=== PATIENT | female | born 1945 | race African-American/Black ===

== ENCOUNTER 2016-12-06 14:21 | Inpatient (IN) | payer OTHER, BC ==
[~2016-12-06] VITALS: Ht 165.1 cm; Wt 54.0 kg
[~2016-12-06 14:21] MED LIST: AMITRIPTYLINE50 M1 PO; BAY PO; CARVEDILOL; CARVEDILOL25 M1 PO; CLEOCIN HCL300 MG PO; COUMADIN4 MG PO; ELA10 PO; ENALAPRIL MALE2.5 MG PO; L20 PO; LAC PO; LANTUS SOLOS100 U/M1 SC; LEVAQUIN750 MG PO; LEVOFLOXACIN500 M1 PO; MEGL; PROAIR HFA0.09 MG/A1 IH; RENVELA800 M1 PO; ZANTAC 150150 MG PO; ZOC20 PO
[2016-12-06 16:02] LABS: BASOPHIL % 0.1 % (0-2)
[2016-12-06 16:06] LABS: PLATELET COUNT 285 x10^3mcL (130-400)
[2016-12-06 16:10] LABS: RED CELL DISTRIBUTION WIDTH 15.4 % (11.5-14.5)
[2016-12-06 16:26] LABS: BILIRUBIN TOTAL 0.59 mg/dL (0.20-1.00); CALCIUM 9.7 mg/dL (8.5-10.1); CARBON DIOXIDE 28.9 mmol/L (21-32); POTASSIUM SERUM 4.2 mmol/L (3.5-5.1); TOTAL PROTEIN, SERUM 7.2 g/dL (6.4-8.2)
[2016-12-06 16:29] LABS: ALBUMIN 2.8 g/dL (3.4-5.0); CREATININE SERUM 9.6 mg/dL (0.6-1.0)
[2016-12-06 17:17] LABS: FREE T4 1.7 ng/dL (0.76-1.46); T4(THYROXINE) 7.4 ug/dL (4.7-13.3)
[2016-12-06 17:30] LABS: CHOLESTEROL/HDL RATIO 3.6
[2016-12-06 17:35] VITALS: BP 100/92
[2016-12-06 19:32] LABS: MAGNESIUM 2.6 mg/dL (1.8-2.4); PHOSPHOROUS 7.7 mg/dL (2.5-4.9)
[2016-12-06 19:52] VITALS: BP 117/36
[2016-12-06 20:08] LABS: T3 TOTAL 0.61 ng/mL
[2016-12-06 23:16] VITALS: BP 133/67
[2016-12-07 03:20] VITALS: BP 117/94
[2016-12-07 05:21] LABS: BASOPHIL % 0.1 % (0-2); PLATELET COUNT 269 x10^3mcL (130-400)
[2016-12-07 05:24] LABS: RED CELL DISTRIBUTION WIDTH 15.2 % (11.5-14.5)
[2016-12-07 05:44] LABS: CALCIUM 9.8 mg/dL (8.5-10.1); CARBON DIOXIDE 29.3 mmol/L (21-32); MAGNESIUM 2.5 mg/dL (1.8-2.4); PHOSPHOROUS 7.6 mg/dL (2.5-4.9); POTASSIUM SERUM 4.1 mmol/L (3.5-5.1)
[2016-12-07 05:46] LABS: CREATININE SERUM 9.6 mg/dL (0.6-1.0)
[2016-12-07 07:39] VITALS: Ht 165.1 cm; Wt 54.0 kg
[2016-12-07 08:36] VITALS: BP 116/67
[2016-12-07 11:29] VITALS: BP 85/52
[2016-12-07 15:21] VITALS: BP 108/58
[2016-12-07 20:00] VITALS: BP 81/50
[2016-12-08 00:01] VITALS: BP 93/49
[2016-12-08 04:06] VITALS: BP 87/43
[2016-12-08 05:43] LABS: CALCIUM 9.2 mg/dL (8.5-10.1); CARBON DIOXIDE 26.7 mmol/L (21-32); MAGNESIUM 2.4 mg/dL (1.8-2.4); PHOSPHOROUS 7.5 mg/dL (2.5-4.9); POTASSIUM SERUM 3.6 mmol/L (3.5-5.1)
[2016-12-08 05:45] LABS: CREATININE SERUM 9.9 mg/dL (0.6-1.0)
[2016-12-08 05:52] LABS: PLATELET COUNT 252 x10^3mcL (130-400)
[2016-12-08 05:56] LABS: BASOPHIL % 0 % (0-2); RED CELL DISTRIBUTION WIDTH 15.7 % (11.5-14.5)
[2016-12-08 07:38] VITALS: BP 89/40
[2016-12-08 11:24] VITALS: BP 73/44
[2016-12-08 18:35] VITALS: BP 97/52
[2016-12-08 21:20] VITALS: BP 104/50
[2016-12-09 05:37] VITALS: BP 98/47
[2016-12-09 07:12] LABS: BASOPHIL % 0.1 % (0-2); PLATELET COUNT 268 x10^3mcL (130-400); RED CELL DISTRIBUTION WIDTH 17.1 % (11.5-14.5)
[2016-12-09 07:13] LABS: CALCIUM 9.4 mg/dL (8.5-10.1); CARBON DIOXIDE 26.3 mmol/L (21-32); MAGNESIUM 2.4 mg/dL (1.8-2.4); PHOSPHOROUS 7.3 mg/dL (2.5-4.9); POTASSIUM SERUM 3.3 mmol/L (3.5-5.1)
[2016-12-09 07:19] LABS: CREATININE SERUM 9.7 mg/dL (0.6-1.0)
[2016-12-09 09:30] VITALS: BP 98/49
[2016-12-09] MEDS ORDERED: ALD25 PO (11:08)
[2016-12-09] MEDS ORDERED: ELIQUIS2.5 MG PO (11:10)
[2016-12-09 12:50] VITALS: BP 97/53
[2016-12-09] MEDS ORDERED: PROAIR HFA8.5 GM IH (13:46)
[2016-12-09] MEDS ORDERED: ZANTAC 150150 MG PO (13:47)
[2016-12-09] MEDS ORDERED: AMITRIPTYLINE H50 MG PO (13:47)
[2016-12-09] MEDS ORDERED: RENVELA800 M1 PO (13:48)
[2016-12-09] MEDS ORDERED: CORE25 PO (13:49)
[2016-12-09 14:43] VITALS: BP 97/53
== END 2016-12-09 15:13 | disposition home or self-care (01) | DRG 291 ==
LOC: ED 14:21 → IC 15:57 → DU 12-08 14:07
PROVIDERS: Emergency Medicine; ADMIT Family Medicine
DX: I50.43 Acute on chronic combined systolic (congestive) and diastolic (congestive) heart failure (principal); N18.6 End stage renal disease; N17.0 Acute kidney failure with tubular necrosis; E43 Unspecified severe protein-calorie malnutrition; J96.01 Acute respiratory failure with hypoxia; I42.9 Cardiomyopathy, unspecified; E11.65 Type 2 diabetes mellitus with hyperglycemia; E11.51 Type 2 diabetes mellitus with diabetic peripheral angiopathy without gangrene; E83.39 Other disorders of phosphorus metabolism; E05.80 Other thyrotoxicosis without thyrotoxic crisis or storm; D63.8 Anemia in other chronic diseases classified elsewhere; D72.829 Elevated white blood cell count, unspecified; Z99.2 Dependence on renal dialysis; Z79.4 Long term (current) use of insulin; Z79.82 Long term (current) use of aspirin; Z68.21 Body mass index [BMI] 21.0-21.9, adult; Z95.810 Presence of automatic (implantable) cardiac defibrillator; Z86.73 Personal history of transient ischemic attack (TIA), and cerebral infarction without residual deficits
CPT/HCPCS: 36600; 80307; 83880; 84439; 94150; J1644; J1815; J3490; J7030; J7050; P9016; Q0092; Q0163

== ENCOUNTER 2017-01-02 15:54 | Inpatient (IN) | payer OTHER, BC ==
[~2017-01-02] VITALS: Ht 165.1 cm; Wt 59.2 kg
[~2017-01-02 15:54] MED LIST changes: +ALD25 PO; +AMITRIPTYLINE H50 MG PO; +CORE25 PO; +ELIQUIS2.5 MG PO; +PROAIR HFA8.5 GM IH
[2017-01-02 17:02] LABS: BASOPHIL % 0.5 % (0-2); PLATELET COUNT 337 x10^3mcL (130-400)
[2017-01-02 17:03] LABS: RED CELL DISTRIBUTION WIDTH 17.7 % (11.5-14.5)
[2017-01-02 17:12] LABS: BILIRUBIN TOTAL 0.38 mg/dL (0.20-1.00); CALCIUM 8.6 mg/dL (8.5-10.1); CARBON DIOXIDE 26.8 mmol/L (21-32); POTASSIUM SERUM 3.9 mmol/L (3.5-5.1); TOTAL PROTEIN, SERUM 6.9 g/dL (6.4-8.2)
[2017-01-02 17:17] LABS: ALBUMIN 2.6 g/dL (3.4-5.0)
[2017-01-02 17:18] LABS: CREATININE SERUM 11.4 mg/dL (0.6-1.0)
[2017-01-02 17:52] LABS: CK-MB 2.8 ng/mL (0-3.6)
[2017-01-02 19:37] LABS: CHOLESTEROL/HDL RATIO 3.3
[2017-01-02 19:48] LABS: FREE T4 0.82 ng/dL (0.76-1.46); FREE THYROXINE INDEX 1.7 ug/dL (1.4-4.5); T4(THYROXINE) 4.8 ug/dL (4.7-13.3)
[2017-01-02 20:08] LABS: MAGNESIUM 2.6 mg/dL (1.8-2.4); PHOSPHOROUS 7.4 mg/dL (2.5-4.9)
[2017-01-02 20:10] LABS: T3 TOTAL 0.5 ng/mL
[2017-01-02 21:36] VITALS: BP 126/64
[2017-01-02 23:00] VITALS: BP 117/73
[2017-01-03] VITALS (8 sets, daily range): BP systolic 80–111; BP diastolic 48–89
[2017-01-03 06:29] LABS: CALCIUM 8.7 mg/dL (8.5-10.1); CARBON DIOXIDE 25.8 mmol/L (21-32); MAGNESIUM 2.4 mg/dL (1.8-2.4); POTASSIUM SERUM 4.5 mmol/L (3.5-5.1)
[2017-01-03 06:33] LABS: CREATININE SERUM 12.1 mg/dL (0.6-1.0)
[2017-01-03 07:01] LABS: BASOPHIL % 0.1 % (0-2); PLATELET COUNT 376 x10^3mcL (130-400)
[2017-01-03 07:02] LABS: RED CELL DISTRIBUTION WIDTH 17.5 % (11.5-14.5)
[2017-01-04] VITALS (7 sets, daily range): BP systolic 85–95; BP diastolic 40–54
[2017-01-04 06:38] LABS: BASOPHIL % 0.4 % (0-2)
[2017-01-04 06:40] LABS: CALCIUM 8.8 mg/dL (8.5-10.1); CARBON DIOXIDE 26.2 mmol/L (21-32); PHOSPHOROUS 8.4 mg/dL (2.5-4.9); POTASSIUM SERUM 4.2 mmol/L (3.5-5.1)
[2017-01-04 06:43] LABS: PLATELET COUNT 284 x10^3mcL (130-400)
[2017-01-04 06:50] LABS: CREATININE SERUM 11.7 mg/dL (0.6-1.0)
[2017-01-04 06:56] LABS: RED CELL DISTRIBUTION WIDTH 17.7 % (11.5-14.5)
[2017-01-05 05:36] VITALS: BP 88/47
[2017-01-05 06:05] LABS: CALCIUM 8.1 mg/dL (8.5-10.1); CARBON DIOXIDE 24.6 mmol/L (21-32); MAGNESIUM 2.4 mg/dL (1.8-2.4); PHOSPHOROUS 6.6 mg/dL (2.5-4.9); POTASSIUM SERUM 4.2 mmol/L (3.5-5.1)
[2017-01-05 06:07] LABS: CREATININE SERUM 11.4 mg/dL (0.6-1.0)
[2017-01-05 09:15] VITALS: BP 112/63
[2017-01-05 16:21] VITALS: BP 94/50
[2017-01-05 21:12] VITALS: BP 101/61
[2017-01-06 06:22] VITALS: BP 110/61
[2017-01-06 07:06] LABS: BASOPHIL % 0.5 % (0-2); PLATELET COUNT 263 x10^3mcL (130-400)
[2017-01-06 07:26] LABS: CALCIUM 8.2 mg/dL (8.5-10.1); CARBON DIOXIDE 23.7 mmol/L (21-32); MAGNESIUM 2.5 mg/dL (1.8-2.4); PHOSPHOROUS 7.2 mg/dL (2.5-4.9); POTASSIUM SERUM 3.8 mmol/L (3.5-5.1)
[2017-01-06 07:27] LABS: CREATININE SERUM 11.3 mg/dL (0.6-1.0)
[2017-01-06 08:46] VITALS: BP 114/58
[2017-01-06] MEDS ORDERED: LEV500 PO (09:50)
[2017-01-06] MEDS ORDERED: CLINDAMYCIN HY150 M1 PO (09:52)
[2017-01-06] MEDS ORDERED: LAC PO (09:53)
[2017-01-06] MEDS ORDERED: FERG PO (09:54)
[2017-01-06 15:33] VITALS: BP 114/58
== END 2017-01-06 16:31 | disposition home health service (06) | DRG 177 ==
LOC: ED 15:54 → DU 18:36 → MU 01-05 09:29
PROVIDERS: Emergency Medicine; Internal Medicine Nephrology; ADMIT Family Medicine
DX: J69.0 Pneumonitis due to inhalation of food and vomit (principal); J96.01 Acute respiratory failure with hypoxia; N18.6 End stage renal disease; I50.43 Acute on chronic combined systolic (congestive) and diastolic (congestive) heart failure; E43 Unspecified severe protein-calorie malnutrition; N17.0 Acute kidney failure with tubular necrosis; I13.2 Hypertensive heart and chronic kidney disease with heart failure and with stage 5 chronic kidney disease, or end stage renal disease; E87.1 Hypo-osmolality and hyponatremia; J44.1 Chronic obstructive pulmonary disease with (acute) exacerbation; I48.0 Paroxysmal atrial fibrillation; E11.65 Type 2 diabetes mellitus with hyperglycemia; I27.2 Other secondary pulmonary hypertension; I37.1 Nonrheumatic pulmonary valve insufficiency; I34.0 Nonrheumatic mitral (valve) insufficiency; I07.1 Rheumatic tricuspid insufficiency; I44.7 Left bundle-branch block, unspecified; D64.9 Anemia, unspecified; Z99.2 Dependence on renal dialysis; Z79.01 Long term (current) use of anticoagulants; Z95.810 Presence of automatic (implantable) cardiac defibrillator; Z86.73 Personal history of transient ischemic attack (TIA), and cerebral infarction without residual deficits
CPT/HCPCS: 32405; 36600; 82962; 83880; 84439; 97110-GP; 97116-GP; 97530-GP; J1815; J2001; J2543; J2930; J7030; J7040; Q0092; Q9967

== ENCOUNTER 2017-01-09 07:00 | Inpatient (IN) | payer OTHER, BC ==
[~2017-01-09] VITALS: Ht 165.1 cm; Wt 64.0 kg
[~2017-01-09 07:00] MED LIST changes: +CLINDAMYCIN HY150 M1 PO; +FERG PO; +LEV500 PO
[2017-01-09 07:33] LABS: BASOPHIL % 0.4 % (0-2); PLATELET COUNT 273 x10^3mcL (130-400)
[2017-01-09 07:35] LABS: RED CELL DISTRIBUTION WIDTH 17.9 % (11.5-14.5)
[2017-01-09 07:52] LABS: BILIRUBIN TOTAL 0.4 mg/dL (0.20-1.00); CALCIUM 8.4 mg/dL (8.5-10.1); CARBON DIOXIDE 26.3 mmol/L (21-32)
[2017-01-09 08:00] LABS: ALBUMIN 2.6 g/dL (3.4-5.0); CREATININE SERUM 11.8 mg/dL (0.6-1.0)
[2017-01-09 09:17] LABS: MAGNESIUM 2.8 mg/dL (1.8-2.4); PHOSPHOROUS 7.7 mg/dL (2.5-4.9)
[2017-01-09 09:26] LABS: CHOLESTEROL/HDL RATIO 2.2
[2017-01-09 09:28] LABS: FREE T4 0.63 ng/dL (0.76-1.46); FREE THYROXINE INDEX 2.3 ug/dL (1.4-4.5); T4(THYROXINE) 6.1 ug/dL (4.7-13.3)
[2017-01-09 09:31] VITALS: BP 115/64
[2017-01-09 10:17] VITALS: BP 115/64
[2017-01-09 10:49] VITALS: BP 115/64
[2017-01-09 13:23] VITALS: BP 106/58
[2017-01-09 18:06] VITALS: BP 104/53
[2017-01-09 21:22] VITALS: BP 106/52
[2017-01-10 05:43] VITALS: BP 110/63
[2017-01-10 06:15] LABS: BASOPHIL % 0.6 % (0-2); PLATELET COUNT 223 x10^3mcL (130-400)
[2017-01-10 06:28] LABS: RED CELL DISTRIBUTION WIDTH 16.7 % (11.5-14.5)
[2017-01-10 06:29] LABS: CALCIUM 8.3 mg/dL (8.5-10.1); CARBON DIOXIDE 27.7 mmol/L (21-32); MAGNESIUM 2.7 mg/dL (1.8-2.4); PHOSPHOROUS 7.1 mg/dL (2.5-4.9); POTASSIUM SERUM 3.6 mmol/L (3.5-5.1)
[2017-01-10 06:51] LABS: CREATININE SERUM 11.9 mg/dL (0.6-1.0)
[2017-01-10 10:29] VITALS: BP 102/57
[2017-01-10 10:34] LABS: T3 TOTAL 0.61 ng/mL
[2017-01-10 14:08] VITALS: BP 107/58
[2017-01-10 18:02] VITALS: BP 99/52
[2017-01-10 20:30] VITALS: BP 96/52
[2017-01-11] VITALS (9 sets, daily range): BP systolic 75–114; BP diastolic 39–66
[2017-01-11 06:24] LABS: BASOPHIL % 0.5 % (0-2); PLATELET COUNT 208 x10^3mcL (130-400)
[2017-01-11 06:26] LABS: RED CELL DISTRIBUTION WIDTH 16.4 % (11.5-14.5)
[2017-01-11 06:28] LABS: CALCIUM 8.4 mg/dL (8.5-10.1); CARBON DIOXIDE 25.6 mmol/L (21-32); MAGNESIUM 2.9 mg/dL (1.8-2.4); PHOSPHOROUS 6.4 mg/dL (2.5-4.9)
[2017-01-11 06:37] LABS: CREATININE SERUM 12.2 mg/dL (0.6-1.0)
[2017-01-12 06:15] VITALS: BP 119/50
[2017-01-12 06:48] LABS: BASOPHIL % 0.5 % (0-2); PLATELET COUNT 207 x10^3mcL (130-400); RED CELL DISTRIBUTION WIDTH 15.9 % (11.5-14.5)
[2017-01-12 07:58] LABS: CALCIUM 9.2 mg/dL (8.5-10.1); CARBON DIOXIDE 24.5 mmol/L (21-32); MAGNESIUM 2.9 mg/dL (1.8-2.4); PHOSPHOROUS 7.2 mg/dL (2.5-4.9); POTASSIUM SERUM 4.8 mmol/L (3.5-5.1)
[2017-01-12 10:00] VITALS: BP 118/54
[2017-01-12 13:38] VITALS: BP 116/48
[2017-01-12 17:04] VITALS: BP 110/42
[2017-01-12 21:29] VITALS: BP 104/50
[2017-01-13] VITALS (9 sets, daily range): BP systolic 73–141; BP diastolic 32–77
[2017-01-13 06:35] LABS: CALCIUM 9.5 mg/dL (8.5-10.1); CARBON DIOXIDE 24.4 mmol/L (21-32); MAGNESIUM 3.1 mg/dL (1.8-2.4); PHOSPHOROUS 8.6 mg/dL (2.5-4.9); POTASSIUM SERUM 5.4 mmol/L (3.5-5.1)
[2017-01-13 06:54] LABS: CREATININE SERUM 13.6 mg/dL (0.6-1.0)
[2017-01-13 07:03] LABS: BASOPHIL % 0.4 % (0-2); PLATELET COUNT 193 x10^3mcL (130-400)
[2017-01-13] MEDS ORDERED: CLINDAMYCIN HY150 M1 PO (14:26)
[2017-01-13] MEDS ORDERED: LEV500 PO (14:45)
[2017-01-13] MEDS ORDERED: LAC PO (14:45)
[2017-01-13] MEDS ORDERED: ALBUTEROL1.25 MG/3 NEB (14:48)
[2017-01-13] MEDS ORDERED: PROAIR HFA8.5 GM IH (14:50)
[2017-01-13] MEDS ORDERED: PROA PO (18:18)
== END 2017-01-13 19:01 | disposition home health service (06) | DRG 682 ==
LOC: ED 07:00 → DU 07:59
PROVIDERS: Emergency Medicine; Family Medicine; ADMIT Family Medicine
DX: N18.6 End stage renal disease (principal); I50.43 Acute on chronic combined systolic (congestive) and diastolic (congestive) heart failure; J96.00 Acute respiratory failure, unspecified whether with hypoxia or hypercapnia; E43 Unspecified severe protein-calorie malnutrition; I13.2 Hypertensive heart and chronic kidney disease with heart failure and with stage 5 chronic kidney disease, or end stage renal disease; I42.8 Other cardiomyopathies; N17.0 Acute kidney failure with tubular necrosis; I48.0 Paroxysmal atrial fibrillation; R91.8 Other nonspecific abnormal finding of lung field; E11.65 Type 2 diabetes mellitus with hyperglycemia; E11.51 Type 2 diabetes mellitus with diabetic peripheral angiopathy without gangrene; E83.39 Other disorders of phosphorus metabolism; E83.41 Hypermagnesemia; E05.80 Other thyrotoxicosis without thyrotoxic crisis or storm; D64.9 Anemia, unspecified; Z68.23 Body mass index [BMI] 23.0-23.9, adult; Z87.891 Personal history of nicotine dependence; Z79.01 Long term (current) use of anticoagulants; Z86.73 Personal history of transient ischemic attack (TIA), and cerebral infarction without residual deficits; Z95.810 Presence of automatic (implantable) cardiac defibrillator; Z99.2 Dependence on renal dialysis; Z79.4 Long term (current) use of insulin
CPT/HCPCS: 82962; 83880; 84439; 97110-GP; 97116-GP; 97530-GP; A4628; J0885-EC; J1815; J2405; J7050; J7620; Q0092

== ENCOUNTER 2017-01-18 16:41 | Observation (INO) | payer OTHER, BC ==
[~2017-01-18] VITALS: Ht 165.1 cm; Wt 60.8 kg
[~2017-01-18 16:41] MED LIST changes: +ALBUTEROL1.25 MG/3 NEB; +PROA PO
[2017-01-18 17:30] LABS: BASOPHIL % 0.7 % (0-2)
[2017-01-18 17:49] LABS: PLATELET COUNT 122 x10^3mcL (130-400); RED CELL DISTRIBUTION WIDTH 16.4 % (11.5-14.5)
[2017-01-18 17:58] LABS: ALBUMIN 2.2 g/dL (3.4-5.0); BILIRUBIN TOTAL 0.5 mg/dL (0.20-1.00); CALCIUM 8.6 mg/dL (8.5-10.1); CARBON DIOXIDE 28.6 mmol/L (21-32); POTASSIUM SERUM 4.5 mmol/L (3.5-5.1)
[2017-01-18 18:00] LABS: CREATININE SERUM 14.8 mg/dL (0.6-1.0)
[2017-01-18 19:47] VITALS: BP 90/51
[2017-01-19 05:36] VITALS: BP 105/54
[2017-01-19 09:26] VITALS: BP 114/53
[2017-01-19 13:05] VITALS: BP 114/53
[2017-01-19 13:23] VITALS: BP 93/42
[2017-01-19] MEDS ORDERED: LANTUS SOLOS100 U/M1 SC ×2 (14:35→15:08)
[2017-01-19] MEDS ORDERED: ALBUTEROL1.25 MG/3 NEB ×2 (14:35→15:19)
== END 2017-01-19 15:24 | disposition home health service (06) | DRG 314 ==
LOC: ED 16:41 → DU 18:44
PROVIDERS: Emergency Medicine; ADMIT Family Medicine
DX: I95.9 Hypotension, unspecified (principal); N18.6 End stage renal disease; I50.43 Acute on chronic combined systolic (congestive) and diastolic (congestive) heart failure; N17.0 Acute kidney failure with tubular necrosis; E43 Unspecified severe protein-calorie malnutrition; I13.2 Hypertensive heart and chronic kidney disease with heart failure and with stage 5 chronic kidney disease, or end stage renal disease; C34.11 Malignant neoplasm of upper lobe, right bronchus or lung; E04.1 Nontoxic single thyroid nodule; E05.90 Thyrotoxicosis, unspecified without thyrotoxic crisis or storm; I48.91 Unspecified atrial fibrillation; E11.22 Type 2 diabetes mellitus with diabetic chronic kidney disease; E11.65 Type 2 diabetes mellitus with hyperglycemia; E11.51 Type 2 diabetes mellitus with diabetic peripheral angiopathy without gangrene; Z99.2 Dependence on renal dialysis; Z68.22 Body mass index [BMI] 22.0-22.9, adult; Z79.4 Long term (current) use of insulin; Z87.891 Personal history of nicotine dependence; Z95.810 Presence of automatic (implantable) cardiac defibrillator; Z86.73 Personal history of transient ischemic attack (TIA), and cerebral infarction without residual deficits
CPT/HCPCS: 82962; 83880; G0378; J1815; Q0092

== ENCOUNTER 2017-02-01 06:54 | Inpatient (IN) | payer OTHER, BC ==
[~2017-02-01] VITALS: Ht 165.1 cm; Wt 59.5 kg
--- NOTE | 2017-02-01 06:57 | NUR ---
RECEIVED A 71 Y/O F BIB [facility] FOR SOB AND ANXIETY. PT WAS ON HER 4TH ROUND OF HOME DIALYSIS WHEN SHE SUDDENLY HAD A HARD TIME BREATHING WHICH CAUSED HER MORE ANXIETY. SHE CALLED 911 AND WAS GIVEN 2 BREATHING TREATMENTS. INITIAL OXYGEN SAT ON THE FIELD WAS HIGH 70S LOW 80S. PT IS TACHYPNIC. PT PLACED IN GOWN, PULSE OX AND BP CUFF. DIMINISHED BREATH SOUNDS NOTED ON BILATERAL UPPER LOBES. PER MEDICS, PT HAD RHONCHI ON BOTH LUNG CORDERO. MSE DONE BY DR CHOWDARY. WILL CONTINUE TO MONITOR.
--- NOTE | 2017-02-01 07:16 | NUR ---
REPORT GIVEN TO XUAN BAKER
--- NOTE | 2017-02-01 07:17 | NUR ---
LAB AT BEDSIDE.
--- NOTE | 2017-02-01 07:18 | NUR ---
PT ON BIPAP MACHINE.
--- NOTE | 2017-02-01 07:20 | NUR ---
PORTABLE CHEST XRAY AT BEDSIDE.
[2017-02-01 07:31] LABS: BASOPHIL % 0.4 % (0-2); PLATELET COUNT 352 x10^3mcL (130-400)
[2017-02-01 07:34] LABS: RED CELL DISTRIBUTION WIDTH 19.4 % (11.5-14.5)
--- NOTE | 2017-02-01 07:42 | NUR ---
UNABLE TO COLLECT URINE FROM ATWOOD CATHETER. ONLY SAW URINE WHEN INSERTED ATWOOD CATHETER BUT NO URINE DRAINED, URINE ONLY IN INITIAL TUBING UP TO AREA WHERE ABLE TO REMOVE URINE WITH SYRINGE.
--- NOTE | 2017-02-01 07:48 | NUR ---
DR. CHOWDARY MADE AWARE OF URINE OUTPUT FROM PT.
[2017-02-01 07:49] LABS: BILIRUBIN TOTAL 0.6 mg/dL (0.20-1.00); CALCIUM 8.7 mg/dL (8.5-10.1); CARBON DIOXIDE 27.4 mmol/L (21-32); MAGNESIUM 2.9 mg/dL (1.8-2.4); POTASSIUM SERUM 3.3 mmol/L (3.5-5.1); TOTAL PROTEIN, SERUM 7.4 g/dL (6.4-8.2)
[2017-02-01 07:52] LABS: ALBUMIN 2.6 g/dL (3.4-5.0); CREATININE SERUM 13.7 mg/dL (0.6-1.0)
[2017-02-01 07:55] LABS: CK-MB 3.5 ng/mL (0-3.6)
--- NOTE | 2017-02-01 09:29 | NUR ---
REPORT CALLED TO GUERA RN, HE WILL ASSUME CARE PRIMARY RN ESTEBAN COX.
[2017-02-01 09:45] VITALS: BP 105/54
--- NOTE | 2017-02-01 09:45 | NUR ---
REC'D PT FROM ED,AAO,GENERALIZED WEAKNESS,ABLE TO GIVE APPROPRIATE ANSWERS,DENIES PAIN,VITALS' NOTED, PERITONEAL DIALYSIS ABD PORT CLAMPED AND CLEAN SITE,BACK SKIN CLEAN,ATWOOD CATH WITH SMALL AMT OF YELLOW URINE,PACEMAKER NOTED TO HER LEFT CHEST,TELE#14 SHOWS UNDERLYING SINUS W/ OCC.PVC'S W/ BB. KEPT COMFORTABLE ON BED,REASSURED,REINFORCE USE OF CALL LIGHT AT HAND FOR ASSISTANCE. RT PUTTING PT ON BIPAP AT THIS TIME.
[2017-02-01 10:35] VITALS: BP 105/54
[2017-02-01 13:00] VITALS: BP 105/54
[2017-02-01 13:08] LABS: T3 TOTAL 0.64 ng/mL
[2017-02-01 13:43] LABS: CHOLESTEROL/HDL RATIO 2.3; FREE T4 1.01 ng/dL (0.76-1.46); T4(THYROXINE) 5.4 ug/dL (4.7-13.3)
[2017-02-01 15:00] VITALS: BP 105/54
[2017-02-01 15:16] VITALS: BP 105/54
--- NOTE | 2017-02-01 19:15 | NUR ---
PT ATE DINNER,RESTING COMFORTABLY AT THIS TIME,IN NO DISTRESS,NO SOB NOTED AND ON 023LNC. BEDSIDE ENDORSEMENT DONE W/ NOC NURSE ROBERT/JOJO. CALL LIGHT REINFORCED TO USE.
[2017-02-01 20:33] LABS: UA SPECIFIC GRAVITY 1.025 (1.005-1.035); microscopic required? YES; urine erythrocyte 2+ (NEGATIVE)
--- NOTE | 2017-02-01 21:00 | NUR ---
A&O X 4. FAMILY MEMBERS AT BEDSIDE. LUNG SOUNDS CLEAR, SYMMETRICAL, AND UNLABORED. ON NC @ 3 L. HOB ELEVATED 30 DEGREES. ON TELE #14, NSR WITH PVC AND BBB. EDEMA NOTED TO LEFT ANKLE. ABD PERITONEAL DIALYSIS CLAMPED, NO REDNESS OR SWELLING. ABD HERNIA NOTED, PT DENIES DISCOMFORT. ATWOOD DRAINING CLEAR YELLOW URINE. SKIN INTACT. DENIES PAIN. LEFT FOREARM SALINE LOCKED, FLUSHED AND PATENT, NO REDNESS OR SWELLING. BED IN LOW POSITION, CALL LIGHT IN REACH. INSTRUCTED TO CALL FOR ASSISTANCE.
[2017-02-01 21:20] VITALS: BP 109/58
--- NOTE | 2017-02-02 03:17 | NUR ---
RESTING IN BED WITH EYES CLOSED. BREATHING EVEN AND UNLABORED. C/O ATWOOD DISCOMFORT, REMOVED PER MD ORDER. DENIES PAIN. BED IN LOW POSITION, CALL LIGHT IN REACH. WILL CONTINUE TO MONITOR.
[2017-02-02 05:44] LABS: BASOPHIL % 0.2 % (0-2); PLATELET COUNT 296 x10^3mcL (130-400)
--- NOTE | 2017-02-02 06:13 | NUR ---
RESTING WITH EYES CLOSED. BREATHING EVEN AND UNLABORED. NO ACUTE DISTRESS NOTED. NO ACUTE CHANGES DURING SHIFT. CURRENTLY RECIEVING PERITONEAL DIALYSIS TREATMENT. BED IN LOW POSITION, CALL LIGHT IN REACH. WILL ENDORSE TO ONCOMING RN.
[2017-02-02 06:18] VITALS: BP 110/53
[2017-02-02 06:18] LABS: CALCIUM 8.1 mg/dL (8.5-10.1); CARBON DIOXIDE 24.7 mmol/L (21-32); MAGNESIUM 2.7 mg/dL (1.8-2.4); PHOSPHOROUS 5.9 mg/dL (2.5-4.9); POTASSIUM SERUM 3.6 mmol/L (3.5-5.1)
[2017-02-02 06:37] LABS: CREATININE SERUM 12.8 mg/dL (0.6-1.0)
[2017-02-02 06:38] LABS: RED CELL DISTRIBUTION WIDTH 19.9 % (11.5-14.5)
--- NOTE | 2017-02-02 07:25 | NUR ---
AAO X4.DENIES ANY PAIN/DISCOMFORT.LUNGS CLEAR.ON SR EITH OCC PVC ON THE MONITOR.IV SALINE LOCKED. PERITONEAL DIALYSIS FINISHED.DIALYSIS NURSE WILL BE AT 8 AM TO D/C THE CATHETER.CALL LIGTH WITHIN REACH.INSTRUCTED TO CALL FOR ANY PAIN/DISCOMFORT.WILL CONTINUE TO MONITOR.
[2017-02-02 09:32] VITALS: BP 106/64
--- NOTE | 2017-02-02 09:41 | NUR ---
Nutrition Note Nursing Trigger "Admitted with potential risk diagnosis" received. Pt admitted with respiratory failure, possible pneumonia secondary to pulmonary edema vs COPD exacerbation, ESRD on PD per doctor's notes. Pt does not meet high risk criteria per nutrition care policy and standards. Pt will be screened as MODERATE risk and initial nutrition assessment due 02/04-.
[2017-02-02 12:58] VITALS: BP 118/72
[2017-02-02 17:03] VITALS: BP 122/69
--- NOTE | 2017-02-02 18:20 | NUR ---
NO SIGNIFICANT CHANGE NOTED.WILL ENDORSE TO NEXT SHIFT.
--- NOTE | 2017-02-02 19:30 | NUR ---
PT IS ALERT AND ORIENTED. PLEASANT AND COOPERAITVE. LUNGS DIMINISHED, CLEAR ON AUSCULTATIONS BILATERALLY UPPER AND LOWER BASES. WITH 2-3 LITERS NASAL CANNULA. CXR- MILD CHF. GENERALIZED WEAKNESS. PERITONEAL DIALYSIS CATHETER INTACT. AND WILL HAVE PERITONEAL DIALYSIS DAILY IN THE NIGHT. 900 CC OUT. LEFT FOREARM HEPLOCK WITH ZOSYN IVPB. PACEMAKER-AICD ON HER LEFT UPPER CHEST. PT HAS ALSO TRACE EDEMA IN THE LEFT ANKLE. WILL CONTINUE TO MONITOR. MADE COMFORTABLE IN BED. CALL LIGHT WITHIN EASY REACH.
[2017-02-02 21:53] VITALS: BP 95/58
--- NOTE | 2017-02-02 22:12 | NUR ---
FOLLOWED UP PERITONEAL DIALYSIS NURSE WITH CHARGE NURSE JUDITH AND WAS TOLD THAT SHE WILL BE HERE IN AN HOUR. PT IS WAITING.
--- NOTE | 2017-02-02 23:30 | NUR ---
DIALYSIS NURSE ARRIVED AND STARTED PERITONEAL DIALYSIS.
--- NOTE | 2017-02-03 05:22 | NUR ---
PT REQUESTED THE AIRLOSS MATTRESS FOR HER BACK COMFORT BUT SHE ALSO REQUESTED TO GET RID OF IT AT MIDNIGHT. GENERALIZED WEAKNESS. IV IN THE RIGHT FOREARM. PATENT AND INTACT. INTACT SKIN. STILL GETTING LEVAQUIN IV DAILY. WILL MONITOR.
--- NOTE | 2017-02-03 05:25 | NUR ---
PT IS RESTING. PERITONEAL DIALYSIS CONTINOUS. DENIES ANY PAIN OR DISCOMFORT. RECEIVED ZOSYN IV ANTIBIOTIC. MADE COMFORTABLE IN BED. CALL LIGHT WITHIN EASY REACH.
[2017-02-03 06:07] VITALS: BP 109/63
[2017-02-03 07:04] LABS: BASOPHIL % 0.1 % (0-2); PLATELET COUNT 293 x10^3mcL (130-400)
[2017-02-03 07:09] LABS: RED CELL DISTRIBUTION WIDTH 18.8 % (11.5-14.5)
[2017-02-03 07:51] LABS: CALCIUM 8.4 mg/dL (8.5-10.1); CARBON DIOXIDE 23.9 mmol/L (21-32); PHOSPHOROUS 6.6 mg/dL (2.5-4.9)
--- NOTE | 2017-02-03 07:58 | NUR ---
AT 0720 - RECEIVED PATIENT FROM NIGHT NURSE PATIENT AWAKE, ALERT AND ORIENTED X 4. MONITOR SHOWING SINUS RHYHTM WITH OCCASIONAL PVC'S; RATE 90. NO C/O PAIN. RESPIRATIONS REGULAR. NO SOB. FINE CRACKLES IN BLL. NO DITAL EDEMA NOTED. PATIENT CURRENTLY ON PERITONEAL DIALYSIS - ON BAG 5 OUT OF 5. DIALYSIS DUE FOR COMPLETION AT 0900. DIALYSIS NURSE SCHEDULED TO COME AT THAT TIME. PATIENT SAT UP IN SIDE OF BED FOR BREAKFAST. AT 0750 - SEEN BY DR CHACON DURING MORNING ROUNDS. MEDICAL TEAM DOCTORS, SAMMY WHITE AND MYSELF PRIMARY NURSE ALSO PRESENT. DR CHACON SPOKE WITH PATIENT ABOUT HER CONDITION AND REPEATED HOSPITALIZATIONS. PATIENT CAN BE DISCHARGED HOME TODAY BUT EXPLAINED TO PATIENT THAT IF SHE NEEDS TO BE ADMITTED, NEXT TIME SHE WOULD NEED TO GO TO [facility] AFTER [facility] ST[facility]. PATIENT VERBALIZED AGREEMENT.
[2017-02-03 08:09] LABS: IRON 47 ug/dL (50-170)
[2017-02-03 08:11] LABS: POTASSIUM SERUM 3.9 mmol/L (3.5-5.1)
[2017-02-03 08:22] LABS: CREATININE SERUM 13.2 mg/dL (0.6-1.0)
[2017-02-03 08:25] LABS: TOTAL IRON BINDING CAPACITY 243 ug/dL (250-450)
[2017-02-03 08:44] VITALS: BP 117/69
--- NOTE | 2017-02-03 09:13 | NUR ---
RECEIVED CALL FROM PATIENT'S DAUGHTER. UPDATED ON PLAN FOR DISCHARGE HOME TODAY.
--- NOTE | 2017-02-03 12:57 | NUR ---
AT 0930 - PERITONEAL DIALYSIS COMPLETED BY DIALYSIS NURSE. TOTAL OF 913 ML OUT. AT 1200 - PATIENT SITTING ON SIDE OF BED. AWAITING DISCHARGE ORDERS.
[2017-02-03 13:38] VITALS: BP 106/61
[2017-02-03] MEDS ORDERED: LEVAQUIN750 MG PO (15:55)
[2017-02-03] MEDS ORDERED: CLINDAMYCIN HC300 MG PO (15:55)
[2017-02-03] MEDS ORDERED: LAC PO (15:56)
[2017-02-03 16:09] VITALS: BP 106/61
[2017-02-03 16:12] VITALS: BP 106/61
--- NOTE | 2017-02-03 16:48 | NUR ---
PRINTED DISCHARGE INSTRUCTIONS GIVEN AND EXPLAINED TO PATIENT. ELECTRONIC PRESCRIPTION HAS BEEN RECEIVED BY PATIENT'S PREFERRED PHARMACY. IV CATHETER REMOVED INTACT. PATIENT WAS TAKEN OFF CARDIAC MONITORING. DISCHARGED HOME WITH DAUGHTER. TAKEN TO CAR IN WHEELCHAIR BY SANDING LINE OPERATOR.
== END 2017-02-03 16:46 | disposition home or self-care (01) | DRG 291 ==
LOC: ED 06:54 → DU 08:44
PROVIDERS: Emergency Medicine; Internal Medicine Nephrology; ADMIT Family Medicine
DX: I13.2 Hypertensive heart and chronic kidney disease with heart failure and with stage 5 chronic kidney disease, or end stage renal disease (principal); N18.6 End stage renal disease; J96.01 Acute respiratory failure with hypoxia; I50.43 Acute on chronic combined systolic (congestive) and diastolic (congestive) heart failure; N17.0 Acute kidney failure with tubular necrosis; E43 Unspecified severe protein-calorie malnutrition; J69.0 Pneumonitis due to inhalation of food and vomit; E87.1 Hypo-osmolality and hyponatremia; J44.1 Chronic obstructive pulmonary disease with (acute) exacerbation; C34.11 Malignant neoplasm of upper lobe, right bronchus or lung; C79.89 Secondary malignant neoplasm of other specified sites; I42.9 Cardiomyopathy, unspecified; E11.51 Type 2 diabetes mellitus with diabetic peripheral angiopathy without gangrene; E11.65 Type 2 diabetes mellitus with hyperglycemia; I48.0 Paroxysmal atrial fibrillation; E87.6 Hypokalemia; E05.90 Thyrotoxicosis, unspecified without thyrotoxic crisis or storm; E83.41 Hypermagnesemia; M62.50 Muscle wasting and atrophy, not elsewhere classified, unspecified site; E87.8 Other disorders of electrolyte and fluid balance, not elsewhere classified; Z99.2 Dependence on renal dialysis; Z79.4 Long term (current) use of insulin; Z68.21 Body mass index [BMI] 21.0-21.9, adult; Z87.891 Personal history of nicotine dependence; Z95.810 Presence of automatic (implantable) cardiac defibrillator; Z91.19 Patient's noncompliance with other medical treatment and regimen; Z86.73 Personal history of transient ischemic attack (TIA), and cerebral infarction without residual deficits
CPT/HCPCS: 36600; 82962; 83880; 84439; C9113; J1815; J1956; J2543; J2920; J3490; J7050; J7620; J7626; Q0092

== ENCOUNTER 2017-02-28 19:10 | Inpatient (IN) | payer OTHER, BC ==
[~2017-02-28] VITALS: Ht 165.1 cm; Wt 65.6 kg
[~2017-02-28 19:10] MED LIST changes: +CLINDAMYCIN HC300 MG PO
[2017-02-28 19:54] LABS: BASOPHIL % 0.3 % (0-2); PLATELET COUNT 276 x10^3mcL (130-400)
[2017-02-28 19:56] LABS: RED CELL DISTRIBUTION WIDTH 19.3 % (11.5-14.5)
[2017-02-28 20:05] LABS: BILIRUBIN TOTAL 0.42 mg/dL (0.20-1.00); CALCIUM 8.9 mg/dL (8.5-10.1); CARBON DIOXIDE 27.8 mmol/L (21-32); POTASSIUM SERUM 3.5 mmol/L (3.5-5.1); TOTAL PROTEIN, SERUM 6.8 g/dL (6.4-8.2); URIC ACID 6.7 mg/dL (2.6-6.0)
[2017-02-28 20:10] LABS: ALBUMIN 2.8 g/dL (3.4-5.0)
[2017-02-28 20:11] LABS: CREATININE SERUM 11.6 mg/dL (0.6-1.0)
[2017-02-28] MEDS ORDERED: COUMADIN4 MG PO (22:36)
[2017-02-28] MEDS ORDERED: ENALAPRIL MALE2.5 MG PO (22:36)
[2017-02-28 23:17] LABS: T3 TOTAL 0.68 ng/mL
[2017-02-28 23:31] LABS: FREE T4 0.92 ng/dL (0.76-1.46); FREE THYROXINE INDEX 2.3 ug/dL (1.4-4.5); T4(THYROXINE) 6.2 ug/dL (4.7-13.3)
[2017-02-28 23:34] LABS: CHOLESTEROL/HDL RATIO 1.7; MAGNESIUM 3.2 mg/dL (1.8-2.4); PHOSPHOROUS 6.5 mg/dL (2.5-4.9)
[2017-03-01 00:43] VITALS: BP 116/68
[2017-03-01 06:20] VITALS: BP 103/66
[2017-03-01 07:43] LABS: CARBON DIOXIDE 27.2 mmol/L (21-32); POTASSIUM SERUM 4.4 mmol/L (3.5-5.1)
[2017-03-01 07:45] LABS: CALCIUM 9.2 mg/dL (8.5-10.1); CREATININE SERUM 11.7 mg/dL (0.6-1.0); MAGNESIUM 3.3 mg/dL (1.8-2.4)
[2017-03-01 09:15] VITALS: BP 117/60
[2017-03-01 14:15] VITALS: BP 63/36
[2017-03-01 15:30] VITALS: BP 83/55
[2017-03-01 19:27] VITALS: BP 104/49
[2017-03-02 00:05] VITALS: BP 86/64
[2017-03-02 04:15] VITALS: BP 112/58
[2017-03-02 05:22] LABS: BASOPHIL % 0.4 % (0-2); PLATELET COUNT 250 x10^3mcL (130-400)
[2017-03-02 05:27] LABS: RED CELL DISTRIBUTION WIDTH 19.2 % (11.5-14.5)
[2017-03-02 05:40] LABS: ALBUMIN 2.4 g/dL (3.4-5.0); CALCIUM 8.2 mg/dL (8.5-10.1); CARBON DIOXIDE 25.9 mmol/L (21-32); PHOSPHOROUS 7.6 mg/dL (2.5-4.9); POTASSIUM SERUM 4.2 mmol/L (3.5-5.1)
[2017-03-02 05:41] LABS: CREATININE SERUM 12.1 mg/dL (0.6-1.0)
[2017-03-02 07:15] VITALS: BP 116/66
[2017-03-02 11:00] VITALS: BP 107/56
[2017-03-02 11:55] VITALS: Ht 165.1 cm; Wt 65.6 kg
[2017-03-02 22:31] VITALS: BP 91/52
[2017-03-03 05:07] VITALS: BP 103/61
[2017-03-03 05:12] VITALS: BP 153/82
[2017-03-03 07:16] VITALS: BP 111/67
[2017-03-03 07:41] LABS: BASOPHIL % 0.5 % (0-2); PLATELET COUNT 244 x10^3mcL (130-400)
[2017-03-03 07:46] LABS: RED CELL DISTRIBUTION WIDTH 19.1 % (11.5-14.5)
[2017-03-03 07:58] LABS: CALCIUM 8.1 mg/dL (8.5-10.1); CARBON DIOXIDE 26.9 mmol/L (21-32); MAGNESIUM 2.8 mg/dL (1.8-2.4); PHOSPHOROUS 5.9 mg/dL (2.5-4.9); POTASSIUM SERUM 3.8 mmol/L (3.5-5.1)
[2017-03-03 08:04] LABS: CREATININE SERUM 11.6 mg/dL (0.6-1.0)
[2017-03-03] MEDS ORDERED: COR3 PO (09:37)
[2017-03-03 12:39] VITALS: BP 111/67
== END 2017-03-03 13:22 | disposition home or self-care (01) | DRG 637 ==
LOC: ED 19:10 → DU 03-01 00:07 → IC 03-01 00:07 → DU 03-01 00:25 → IC 03-01 15:44 → DU 03-02 16:03
PROVIDERS: Emergency Medicine; ADMIT Family Medicine
DX: E11.649 Type 2 diabetes mellitus with hypoglycemia without coma (principal); G93.41 Metabolic encephalopathy; I50.43 Acute on chronic combined systolic (congestive) and diastolic (congestive) heart failure; I13.2 Hypertensive heart and chronic kidney disease with heart failure and with stage 5 chronic kidney disease, or end stage renal disease; E87.1 Hypo-osmolality and hyponatremia; E44.0 Moderate protein-calorie malnutrition; I42.9 Cardiomyopathy, unspecified; C34.91 Malignant neoplasm of unspecified part of right bronchus or lung; M62.50 Muscle wasting and atrophy, not elsewhere classified, unspecified site; I95.89 Other hypotension; E11.51 Type 2 diabetes mellitus with diabetic peripheral angiopathy without gangrene; N18.6 End stage renal disease; N17.0 Acute kidney failure with tubular necrosis; I48.2 Chronic atrial fibrillation; E05.90 Thyrotoxicosis, unspecified without thyrotoxic crisis or storm; E83.41 Hypermagnesemia; Z68.23 Body mass index [BMI] 23.0-23.9, adult; Z91.19 Patient's noncompliance with other medical treatment and regimen; Z99.2 Dependence on renal dialysis; Z79.4 Long term (current) use of insulin; Z99.81 Dependence on supplemental oxygen; Z95.810 Presence of automatic (implantable) cardiac defibrillator; Z86.73 Personal history of transient ischemic attack (TIA), and cerebral infarction without residual deficits; Z79.01 Long term (current) use of anticoagulants; Z87.891 Personal history of nicotine dependence; Z91.15 Patient's noncompliance with renal dialysis
CPT/HCPCS: 36556; 82962; 83880; 84439; J1642; J1815; J2060; J3490; J7030; Q0092

== ENCOUNTER 2017-04-11 22:10 | Inpatient (IN) | payer OTHER, BC ==
[~2017-04-11] VITALS: Ht 157.5 cm; Wt 52.2 kg
[~2017-04-11 22:10] MED LIST changes: +COR3 PO
[2017-04-11 23:08] LABS: BASOPHIL % 0.2 % (0-2); PLATELET COUNT 256 x10^3mcL (130-400)
[2017-04-11 23:14] LABS: RED CELL DISTRIBUTION WIDTH 17.6 % (11.5-14.5)
[2017-04-11 23:28] LABS: BILIRUBIN TOTAL 0.7 mg/dL (0.20-1.00); CALCIUM 9.1 mg/dL (8.5-10.1); CARBON DIOXIDE 28.8 mmol/L (21-32); TOTAL PROTEIN, SERUM 7.5 g/dL (6.4-8.2)
[2017-04-11 23:35] LABS: ALBUMIN 3.1 g/dL (3.4-5.0)
[2017-04-11 23:36] LABS: CREATININE SERUM 12.6 mg/dL (0.6-1.0)
[2017-04-12] VITALS (7 sets, daily range): BP systolic 84–123; BP diastolic 46–83
[2017-04-12 02:53] LABS: MAGNESIUM 2.7 mg/dL (1.8-2.4); PHOSPHOROUS 7.7 mg/dL (2.5-4.9)
[2017-04-12 02:54] LABS: CHOLESTEROL/HDL RATIO 2.2
[2017-04-12 03:01] LABS: T3 TOTAL 0.63 ng/mL
[2017-04-12 03:04] LABS: FREE T4 1.14 ng/dL (0.76-1.46); FREE THYROXINE INDEX 2.3 ug/dL (1.4-4.5); T4(THYROXINE) 6.3 ug/dL (4.7-13.3)
[2017-04-13 05:14] VITALS: BP 94/61
[2017-04-13 06:19] LABS: BASOPHIL % 0.6 % (0-2); PLATELET COUNT 228 x10^3mcL (130-400)
[2017-04-13 06:39] LABS: CALCIUM 8.5 mg/dL (8.5-10.1); CARBON DIOXIDE 28.3 mmol/L (21-32); MAGNESIUM 2.7 mg/dL (1.8-2.4); PHOSPHOROUS 8.4 mg/dL (2.5-4.9); POTASSIUM SERUM 4.4 mmol/L (3.5-5.1)
[2017-04-13 06:45] LABS: CREATININE SERUM 13.3 mg/dL (0.6-1.0)
[2017-04-13 13:00] VITALS: BP 82/59
[2017-04-13 15:12] VITALS: BP 89/50
[2017-04-13 19:10] VITALS: BP 86/50
[2017-04-13 22:19] VITALS: BP 90/53
[2017-04-14 06:09] VITALS: BP 91/56
[2017-04-14 06:55] LABS: CALCIUM 8.2 mg/dL (8.5-10.1); CARBON DIOXIDE 26.5 mmol/L (21-32); MAGNESIUM 2.5 mg/dL (1.8-2.4); PHOSPHOROUS 8.5 mg/dL (2.5-4.9); POTASSIUM SERUM 4.5 mmol/L (3.5-5.1)
[2017-04-14 07:29] LABS: CREATININE SERUM 13.2 mg/dL (0.6-1.0)
[2017-04-14 09:56] VITALS: BP 100/55
[2017-04-14 14:00] VITALS: BP 90/48
[2017-04-14 17:11] VITALS: BP 85/52
[2017-04-14 21:38] VITALS: BP 87/47
[2017-04-15 06:11] VITALS: BP 97/54
[2017-04-15 06:46] LABS: CALCIUM 7.8 mg/dL (8.5-10.1); CARBON DIOXIDE 24.1 mmol/L (21-32); PHOSPHOROUS 6.9 mg/dL (2.5-4.9); POTASSIUM SERUM 3.6 mmol/L (3.5-5.1)
[2017-04-15 07:27] LABS: CREATININE SERUM 12.2 mg/dL (0.6-1.0)
[2017-04-15 10:20] VITALS: BP 87/48
[2017-04-15 14:30] VITALS: BP 90/59
[2017-04-15 18:38] VITALS: BP 95/58
[2017-04-15 22:49] VITALS: BP 91/47
[2017-04-16 05:50] VITALS: BP 106/64
[2017-04-16 06:39] LABS: BASOPHIL % 0.5 % (0-2); PLATELET COUNT 230 x10^3mcL (130-400)
[2017-04-16 06:49] LABS: RED CELL DISTRIBUTION WIDTH 16.6 % (11.5-14.5)
[2017-04-16 07:00] LABS: CARBON DIOXIDE 27.4 mmol/L (21-32); POTASSIUM SERUM 3.2 mmol/L (3.5-5.1)
[2017-04-16 07:03] LABS: CREATININE SERUM 11.8 mg/dL (0.6-1.0)
[2017-04-16 07:07] LABS: MAGNESIUM 2.3 mg/dL (1.8-2.4); PHOSPHOROUS 5.9 mg/dL (2.5-4.9)
[2017-04-16 09:59] VITALS: BP 104/57
[2017-04-16 13:41] VITALS: BP 97/54
[2017-04-16 17:55] VITALS: BP 104/58
[2017-04-16 18:43] LABS: CALCIUM IONIZED 4.2 mg/dL (4.5-5.6)
[2017-04-16 21:50] VITALS: BP 90/54
[2017-04-17 06:53] LABS: POTASSIUM SERUM 3.5 mmol/L (3.5-5.1)
[2017-04-17 07:00] VITALS: BP 92/55
[2017-04-17 07:03] LABS: CREATININE SERUM 9.6 mg/dL (0.6-1.0)
[2017-04-17 09:32] VITALS: BP 93/52
[2017-04-17 10:56] VITALS: BP 93/52
== END 2017-04-17 13:20 | disposition home or self-care (01) | DRG 919 ==
LOC: ED 22:10 → DU 04-12 00:29
PROVIDERS: Emergency Medicine; Family Medicine; Internal Medicine; Internal Medicine Nephrology; Surgery; ADMIT Family Medicine
PROC: B548ZZA Ultrasonography of Superior Vena Cava, Guidance (ICD-10-PCS; 2017-04-16)
PROC: 02HV33Z Insertion of Infusion Device into Superior Vena Cava, Percutaneous Approach (ICD-10-PCS; principal; 2017-04-16 09:00)
DX: T85.621A Displacement of intraperitoneal dialysis catheter, initial encounter (principal); N18.6 End stage renal disease; N17.0 Acute kidney failure with tubular necrosis; I50.43 Acute on chronic combined systolic (congestive) and diastolic (congestive) heart failure; R18.8 Other ascites; C34.90 Malignant neoplasm of unspecified part of unspecified bronchus or lung; I42.0 Dilated cardiomyopathy; E44.0 Moderate protein-calorie malnutrition; E87.1 Hypo-osmolality and hyponatremia; I13.2 Hypertensive heart and chronic kidney disease with heart failure and with stage 5 chronic kidney disease, or end stage renal disease; M94.0 Chondrocostal junction syndrome [Tietze]; D63.1 Anemia in chronic kidney disease; E11.51 Type 2 diabetes mellitus with diabetic peripheral angiopathy without gangrene; E11.65 Type 2 diabetes mellitus with hyperglycemia; M62.50 Muscle wasting and atrophy, not elsewhere classified, unspecified site; E83.41 Hypermagnesemia; E87.8 Other disorders of electrolyte and fluid balance, not elsewhere classified; K43.9 Ventral hernia without obstruction or gangrene; I48.0 Paroxysmal atrial fibrillation; E83.39 Other disorders of phosphorus metabolism; I25.2 Old myocardial infarction; Z68.21 Body mass index [BMI] 21.0-21.9, adult; Z99.2 Dependence on renal dialysis; Z79.4 Long term (current) use of insulin; Z99.81 Dependence on supplemental oxygen; Z87.891 Personal history of nicotine dependence; Z95.810 Presence of automatic (implantable) cardiac defibrillator; Z86.73 Personal history of transient ischemic attack (TIA), and cerebral infarction without residual deficits; Z92.3 Personal history of irradiation; Y84.1 Kidney dialysis as the cause of abnormal reaction of the patient, or of later complication, without mention of misadventure at the time of the procedure; Y92.009 Unspecified place in unspecified non-institutional (private) residence as the place of occurrence of the external cause
CPT/HCPCS: 82962; 83880; 84439; 94150; 97110-GP; 97116-GP; 97530-GP; A4301; C1769; J0690; J0696; J1644; J1815; J2001; J2060; J2250; J2704; J3010; J3490; J7030; J7040; J7050; J7620; Q0092; Q9967

== ENCOUNTER 2017-04-24 16:36 | Inpatient (IN) | payer OTHER, BC ==
[~2017-04-24] VITALS: Ht 165.1 cm; Wt 61.8 kg
[2017-04-24 19:15] LABS: BASOPHIL % 0.4 % (0-2); PLATELET COUNT 218 x10^3mcL (130-400)
[2017-04-24 19:16] LABS: RED CELL DISTRIBUTION WIDTH 16.6 % (11.5-14.5)
[2017-04-24 19:22] LABS: BILIRUBIN TOTAL 0.6 mg/dL (0.20-1.00); CALCIUM 8.5 mg/dL (8.5-10.1); CARBON DIOXIDE 28.4 mmol/L (21-32); POTASSIUM SERUM 5.4 mmol/L (3.5-5.1); TOTAL PROTEIN, SERUM 6.4 g/dL (6.4-8.2)
[2017-04-24 19:37] LABS: ALBUMIN 2.4 g/dL (3.4-5.0)
[2017-04-24 19:40] LABS: CREATININE SERUM 8.4 mg/dL (0.6-1.0)
[2017-04-24 20:21] LABS: T3 TOTAL 0.37 ng/mL
[2017-04-24 20:23] LABS: FREE T4 1.45 ng/dL (0.76-1.46); FREE THYROXINE INDEX 3.1 ug/dL (1.4-4.5); T4(THYROXINE) 7.7 ug/dL (4.7-13.3)
[2017-04-24 20:31] LABS: MAGNESIUM 2.4 mg/dL (1.8-2.4); PHOSPHOROUS 5.9 mg/dL (2.5-4.9)
[2017-04-24 20:36] LABS: CHOLESTEROL/HDL RATIO 2.2
[2017-04-24 22:17] VITALS: BP 113/67
[2017-04-24 23:21] VITALS: BP 113/67; BP 116/64
[2017-04-25] MEDS ORDERED: ELIQUIS2.5 MG PO (04:53)
[2017-04-25 07:20] VITALS: BP 104/61
[2017-04-25 07:57] LABS: BASOPHIL % 0.2 % (0-2); PLATELET COUNT 206 x10^3mcL (130-400)
[2017-04-25 07:58] LABS: RED CELL DISTRIBUTION WIDTH 16.3 % (11.5-14.5)
[2017-04-25 08:51] LABS: CALCIUM 8.8 mg/dL (8.5-10.1); CARBON DIOXIDE 25.1 mmol/L (21-32); PHOSPHOROUS 6.2 mg/dL (2.5-4.9); POTASSIUM SERUM 5.4 mmol/L (3.5-5.1)
[2017-04-25 10:14] VITALS: BP 103/63
[2017-04-25 14:00] VITALS: BP 110/53
[2017-04-25 15:25] VITALS: BP 95/62
[2017-04-25 17:10] VITALS: BP 99/61
[2017-04-25 21:39] VITALS: BP 107/64
[2017-04-26] VITALS (7 sets, daily range): BP systolic 92–144; BP diastolic 56–66
[2017-04-26 07:12] LABS: BASOPHIL % 0.3 % (0-2); PLATELET COUNT 222 x10^3mcL (130-400)
[2017-04-26 07:13] LABS: RED CELL DISTRIBUTION WIDTH 16.2 % (11.5-14.5)
[2017-04-26 07:32] LABS: CALCIUM 9.2 mg/dL (8.5-10.1); CARBON DIOXIDE 31.5 mmol/L (21-32); MAGNESIUM 2.6 mg/dL (1.8-2.4); POTASSIUM SERUM 4.2 mmol/L (3.5-5.1)
[2017-04-26 07:33] LABS: CREATININE SERUM 9.7 mg/dL (0.6-1.0)
[2017-04-27 05:24] VITALS: BP 96/55
[2017-04-27 09:49] VITALS: BP 99/58
[2017-04-27 12:30] LABS: BASOPHIL % 0.2 % (0-2); PLATELET COUNT 248 x10^3mcL (130-400)
[2017-04-27 12:31] LABS: RED CELL DISTRIBUTION WIDTH 16.1 % (11.5-14.5)
[2017-04-27 13:12] LABS: CALCIUM 8.8 mg/dL (8.5-10.1); CARBON DIOXIDE 28.9 mmol/L (21-32); MAGNESIUM 2.5 mg/dL (1.8-2.4); PHOSPHOROUS 5.7 mg/dL (2.5-4.9); POTASSIUM SERUM 4.6 mmol/L (3.5-5.1)
[2017-04-27 13:28] LABS: CREATININE SERUM 9.8 mg/dL (0.6-1.0)
[2017-04-27 13:51] VITALS: BP 113/58
[2017-04-27 17:05] VITALS: BP 113/58
== END 2017-04-27 17:30 | disposition home or self-care (01) | DRG 314 ==
LOC: ED 16:36 → DU 20:13 → MU 20:13 → DU 20:13 → MU 22:03
PROVIDERS: Emergency Medicine; ADMIT Family Medicine
DX: T82.49XA Other complication of vascular dialysis catheter, initial encounter (principal); N18.6 End stage renal disease; I50.43 Acute on chronic combined systolic (congestive) and diastolic (congestive) heart failure; N17.0 Acute kidney failure with tubular necrosis; E43 Unspecified severe protein-calorie malnutrition; I13.2 Hypertensive heart and chronic kidney disease with heart failure and with stage 5 chronic kidney disease, or end stage renal disease; C34.91 Malignant neoplasm of unspecified part of right bronchus or lung; I42.9 Cardiomyopathy, unspecified; E11.51 Type 2 diabetes mellitus with diabetic peripheral angiopathy without gangrene; E11.65 Type 2 diabetes mellitus with hyperglycemia; E87.5 Hyperkalemia; E05.90 Thyrotoxicosis, unspecified without thyrotoxic crisis or storm; I48.91 Unspecified atrial fibrillation; Y84.1 Kidney dialysis as the cause of abnormal reaction of the patient, or of later complication, without mention of misadventure at the time of the procedure; Y92.018 Other place in single-family (private) house as the place of occurrence of the external cause; Z99.2 Dependence on renal dialysis; Z95.810 Presence of automatic (implantable) cardiac defibrillator; Z91.15 Patient's noncompliance with renal dialysis
CPT/HCPCS: 82962; 83880; 84439; J1815; J3490; J7030; J7613; Q0092; Q0163

== ENCOUNTER 2017-05-19 11:35 | Emergency (ER) | payer OTHER, BC ==
[~2017-05-19] VITALS: Ht 167.6 cm; Wt 53.1 kg
[2017-05-19 13:09] VITALS: BP 92/45
== END 2017-05-19 13:09 | disposition home or self-care (01) ==
LOC: ED 11:35
DX: J44.1 Chronic obstructive pulmonary disease with (acute) exacerbation (principal); I10 Essential (primary) hypertension; E11.9 Type 2 diabetes mellitus without complications; Z88.8 Allergy status to other drugs, medicaments and biological substances; Z79.899 Other long term (current) drug therapy; Z79.84 Long term (current) use of oral hypoglycemic drugs
CPT/HCPCS: J7620

== ENCOUNTER → 2017-05-25 | Outpatient (CLI) | payer OTHER, BC | END | disposition home or self-care (01) | LOC: LB 13:08 | DX: T85.621A Displacement of intraperitoneal dialysis catheter, initial encounter (principal) ==

== ENCOUNTER 2017-06-12 20:37 | Inpatient (IN) | payer OTHER, BC ==
[~2017-06-12] VITALS: Ht 152.4 cm; Wt 55.3 kg
[2017-06-12 21:49] LABS: BASOPHIL % 0.1 % (0-2); PLATELET COUNT 272 x10^3mcL (130-400)
[2017-06-12 21:57] LABS: RED CELL DISTRIBUTION WIDTH 17.3 % (11.5-14.5)
[2017-06-12 22:02] LABS: ALBUMIN 2.3 g/dL (3.4-5.0); BILIRUBIN TOTAL 0.48 mg/dL (0.20-1.00); CALCIUM 7.6 mg/dL (8.5-10.1); CARBON DIOXIDE 26.5 mmol/L (21-32); POTASSIUM SERUM 3.4 mmol/L (3.5-5.1); TOTAL PROTEIN, SERUM 6.5 g/dL (6.4-8.2)
[2017-06-12 22:04] LABS: CREATININE SERUM 11.4 mg/dL (0.6-1.0)
[2017-06-12 22:21] LABS: CK-MB 3.5 ng/mL (0-3.6)
[2017-06-13 01:13] VITALS: BP 105/54
[2017-06-13 01:17] VITALS: Ht 152.4 cm; Wt 55.3 kg
[2017-06-13 01:35] LABS: MAGNESIUM 2.1 mg/dL (1.8-2.4); PHOSPHOROUS 8.6 mg/dL (2.5-4.9)
[2017-06-13 01:36] LABS: CHOLESTEROL/HDL RATIO 2.2
[2017-06-13 01:42] LABS: T3 TOTAL 0.51 ng/mL
[2017-06-13 01:55] LABS: FREE T4 0.97 ng/dL (0.76-1.46); FREE THYROXINE INDEX 2.2 ug/dL (1.4-4.5); T4(THYROXINE) 5.4 ug/dL (4.7-13.3)
[2017-06-13 05:59] VITALS: BP 92/56
[2017-06-13 06:11] LABS: BASOPHIL % 0.2 % (0-2); PLATELET COUNT 243 x10^3mcL (130-400)
[2017-06-13 06:37] LABS: CALCIUM 7.4 mg/dL (8.5-10.1); CARBON DIOXIDE 25.3 mmol/L (21-32); POTASSIUM SERUM 3.7 mmol/L (3.5-5.1)
[2017-06-13 06:45] LABS: CREATININE SERUM 11.8 mg/dL (0.6-1.0)
[2017-06-13 06:47] LABS: RED CELL DISTRIBUTION WIDTH 16.7 % (11.5-14.5)
[2017-06-13 10:52] VITALS: BP 92/58
[2017-06-13 14:00] VITALS: BP 88/56
[2017-06-13 17:54] VITALS: BP 86/60
[2017-06-13 21:41] VITALS: BP 87/53
[2017-06-14 05:40] VITALS: BP 103/61
[2017-06-14 05:58] LABS: BASOPHIL % 0.2 % (0-2); PLATELET COUNT 262 x10^3mcL (130-400)
[2017-06-14 06:14] LABS: RED CELL DISTRIBUTION WIDTH 17.2 % (11.5-14.5)
[2017-06-14 06:15] LABS: CALCIUM 7.7 mg/dL (8.5-10.1); CARBON DIOXIDE 23.9 mmol/L (21-32); PHOSPHOROUS 8.8 mg/dL (2.5-4.9); POTASSIUM SERUM 3.8 mmol/L (3.5-5.1)
[2017-06-14 06:20] LABS: CREATININE SERUM 11.1 mg/dL (0.6-1.0)
[2017-06-14 09:20] VITALS: BP 95/60
[2017-06-14] MEDS ORDERED: KEF500 PO (13:21)
== END 2017-06-14 13:53 | disposition left against medical advice (07) | DRG 291 ==
LOC: ED 20:37 → DU 23:22
PROVIDERS: Emergency Medicine; ADMIT Family Medicine
DX: I50.43 Acute on chronic combined systolic (congestive) and diastolic (congestive) heart failure (principal); N17.0 Acute kidney failure with tubular necrosis; N18.6 End stage renal disease; E43 Unspecified severe protein-calorie malnutrition; C34.91 Malignant neoplasm of unspecified part of right bronchus or lung; I48.2 Chronic atrial fibrillation; E11.65 Type 2 diabetes mellitus with hyperglycemia; E87.6 Hypokalemia; E83.39 Other disorders of phosphorus metabolism; D64.9 Anemia, unspecified; I25.2 Old myocardial infarction; Z91.19 Patient's noncompliance with other medical treatment and regimen; Z99.2 Dependence on renal dialysis; Z87.891 Personal history of nicotine dependence; Z86.73 Personal history of transient ischemic attack (TIA), and cerebral infarction without residual deficits; Z95.5 Presence of coronary angioplasty implant and graft; Z95.810 Presence of automatic (implantable) cardiac defibrillator; Z79.01 Long term (current) use of anticoagulants; Z79.4 Long term (current) use of insulin; Z68.25 Body mass index [BMI] 25.0-25.9, adult
CPT/HCPCS: 82962; 83880; 84439; J1815; J2270; J7030; Q0092

== ENCOUNTER 2017-06-25 22:30 | Emergency (ER) | payer OTHER, BC ==
[~2017-06-25 22:30] MED LIST changes: +KEF500 PO
[2017-06-26 01:50] VITALS: BP 105/59
[2017-06-29] MEDS ORDERED: IBUPROFEN400 MG PO (23:41)
== END 2017-06-26 01:45 | disposition home or self-care (01) ==
LOC: ED 22:30
DX: R07.9 Chest pain, unspecified (principal); I11.0 Hypertensive heart disease with heart failure; I50.9 Heart failure, unspecified; E11.9 Type 2 diabetes mellitus without complications; Z95.0 Presence of cardiac pacemaker; Z88.8 Allergy status to other drugs, medicaments and biological substances
CPT/HCPCS: 36415; Q0092

== ENCOUNTER 2017-06-29 20:03 | Inpatient (IN) | payer OTHER, BC ==
[~2017-06-29] VITALS: Ht 152.4 cm; Wt 58.2 kg
[2017-06-29 22:02] LABS: BASOPHIL % 0.3 % (0-2); PLATELET COUNT 322 x10^3mcL (130-400)
[2017-06-29 22:05] LABS: RED CELL DISTRIBUTION WIDTH 15.8 % (11.5-14.5)
[2017-06-29 22:26] LABS: ALBUMIN 1.9 g/dL (3.4-5.0); BILIRUBIN TOTAL 0.3 mg/dL (0.20-1.00); CALCIUM 7.2 mg/dL (8.5-10.1); CARBON DIOXIDE 26.9 mmol/L (21-32); POTASSIUM SERUM 3.7 mmol/L (3.5-5.1); TOTAL PROTEIN, SERUM 6.3 g/dL (6.4-8.2)
[2017-06-29 22:27] LABS: CREATININE SERUM 10.7 mg/dL (0.6-1.0)
[2017-06-29] MEDS ORDERED: RENVELA800 M1 PO (23:40)
[2017-06-29] MEDS ORDERED: RANITIDINE HCL150 M1 PO (23:40)
[2017-06-29] MEDS ORDERED: TRAMADOL HCL50 MG PO (23:41)
[2017-06-30] VITALS (11 sets, daily range): BP systolic 83–102; BP diastolic 48–62; Ht 152.4 cm; Wt 58.2 kg
[2017-06-30 00:28] LABS: MAGNESIUM 2.1 mg/dL (1.8-2.4)
[2017-06-30 00:30] LABS: PHOSPHOROUS 11.2 mg/dL (2.5-4.9)
[2017-06-30 06:33] LABS: BASOPHIL % 0.6 % (0-2); PLATELET COUNT 349 x10^3mcL (130-400)
[2017-06-30 06:34] LABS: RED CELL DISTRIBUTION WIDTH 15.8 % (11.5-14.5)
[2017-06-30 06:57] LABS: CALCIUM 7.6 mg/dL (8.5-10.1)
[2017-06-30 07:45] LABS: CREATININE SERUM 11.2 mg/dL (0.6-1.0); PHOSPHOROUS 11.5 mg/dL (2.5-4.9)
[2017-07-01 05:26] VITALS: BP 103/50
[2017-07-01 06:35] LABS: BASOPHIL % 0.2 % (0-2); PLATELET COUNT 329 x10^3mcL (130-400)
[2017-07-01 06:37] LABS: RED CELL DISTRIBUTION WIDTH 15.5 % (11.5-14.5)
[2017-07-01 06:59] LABS: CALCIUM 8.2 mg/dL (8.5-10.1); CARBON DIOXIDE 23.8 mmol/L (21-32); MAGNESIUM 2.3 mg/dL (1.8-2.4); POTASSIUM SERUM 3.8 mmol/L (3.5-5.1)
[2017-07-01 07:33] LABS: CREATININE SERUM 11.3 mg/dL (0.6-1.0); PHOSPHOROUS 12.4 mg/dL (2.5-4.9)
[2017-07-01 09:05] VITALS: BP 92/53
[2017-07-01 13:46] VITALS: BP 100/55
[2017-07-01 16:45] VITALS: BP 95/56
[2017-07-01 21:16] VITALS: BP 91/55
[2017-07-02 06:01] VITALS: BP 97/56
[2017-07-02 06:59] LABS: BASOPHIL % 0.4 % (0-2); PLATELET COUNT 331 x10^3mcL (130-400)
[2017-07-02 07:11] LABS: RED CELL DISTRIBUTION WIDTH 15.7 % (11.5-14.5)
[2017-07-02 07:40] LABS: CALCIUM 8.3 mg/dL (8.5-10.1); CARBON DIOXIDE 25.3 mmol/L (21-32); MAGNESIUM 2.1 mg/dL (1.8-2.4); POTASSIUM SERUM 3.9 mmol/L (3.5-5.1)
[2017-07-02 08:04] LABS: CREATININE SERUM 11.2 mg/dL (0.6-1.0)
[2017-07-02 08:25] LABS: PHOSPHOROUS 12.9 mg/dL (2.5-4.9)
[2017-07-02 10:02] VITALS: BP 99/55
[2017-07-02 12:50] VITALS: BP 82/48
[2017-07-02 14:39] VITALS: BP 82/53
[2017-07-02 17:28] VITALS: BP 100/61
[2017-07-02 20:56] VITALS: BP 91/55
[2017-07-03 05:41] VITALS: BP 92/49
[2017-07-03 07:29] LABS: CALCIUM 8.6 mg/dL (8.5-10.1); CARBON DIOXIDE 23.1 mmol/L (21-32); POTASSIUM SERUM 3.9 mmol/L (3.5-5.1)
[2017-07-03 07:51] LABS: CREATININE SERUM 11.2 mg/dL (0.6-1.0)
[2017-07-03 07:52] LABS: PHOSPHOROUS 12.1 mg/dL (2.5-4.9)
[2017-07-03 08:30] VITALS: BP 90/47
[2017-07-03 10:44] VITALS: BP 90/47
[2017-07-03] MEDS ORDERED: IBUPROFEN400 MG PO (13:48)
== END 2017-07-03 14:19 | disposition home or self-care (01) | DRG 205 ==
LOC: ED 20:03 → DU 23:12
PROVIDERS: Emergency Medicine; Internal Medicine; Internal Medicine Interventional Cardiology; ADMIT Student in an Organized Health Care Education/Training Program
PROC: B246ZZ4 Ultrasonography of Right and Left Heart, Transesophageal (ICD-10-PCS; principal; 2017-07-02 14:00)
DX: M94.0 Chondrocostal junction syndrome [Tietze] (principal); I50.43 Acute on chronic combined systolic (congestive) and diastolic (congestive) heart failure; N17.0 Acute kidney failure with tubular necrosis; E43 Unspecified severe protein-calorie malnutrition; N18.6 End stage renal disease; J96.21 Acute and chronic respiratory failure with hypoxia; I42.0 Dilated cardiomyopathy; I13.2 Hypertensive heart and chronic kidney disease with heart failure and with stage 5 chronic kidney disease, or end stage renal disease; E87.1 Hypo-osmolality and hyponatremia; I34.0 Nonrheumatic mitral (valve) insufficiency; D63.1 Anemia in chronic kidney disease; E11.51 Type 2 diabetes mellitus with diabetic peripheral angiopathy without gangrene; E11.65 Type 2 diabetes mellitus with hyperglycemia; E83.39 Other disorders of phosphorus metabolism; J44.9 Chronic obstructive pulmonary disease, unspecified; I36.1 Nonrheumatic tricuspid (valve) insufficiency; I37.1 Nonrheumatic pulmonary valve insufficiency; I48.0 Paroxysmal atrial fibrillation; Z99.2 Dependence on renal dialysis; Z79.4 Long term (current) use of insulin; Z68.25 Body mass index [BMI] 25.0-25.9, adult; Z87.891 Personal history of nicotine dependence; Z95.810 Presence of automatic (implantable) cardiac defibrillator; Z79.1 Long term (current) use of non-steroidal anti-inflammatories (NSAID); Z85.110 Personal history of malignant carcinoid tumor of bronchus and lung; Z86.73 Personal history of transient ischemic attack (TIA), and cerebral infarction without residual deficits
CPT/HCPCS: 83880; 85378; 97116-GP; J1815; J2250; J2270; J2405; J3010; J3490; J7030; J7050; J7620; Q0092

== ENCOUNTER → 2017-07-11 | Outpatient (CLI) | payer OTHER, BC ==
[~2017-07-11] MED LIST changes: +IBUPROFEN400 MG PO; +RANITIDINE HCL150 M1 PO; +TRAMADOL HCL50 MG PO
== END | disposition home or self-care (01) ==
LOC: LB 11:29
DX: I33.0 Acute and subacute infective endocarditis (principal)